=== PATIENT | female | born 1985 | race Caucasian/White ===

== ENCOUNTER 2016-05-09 07:09 | Inpatient (IN) | payer OTHER ==
[2016-05-09 08:03] LABS: HCT 38.9 % (37.0-47.0); HGB 13.3 g/dl (12.5-16.0); MCH 33.3 pg (25.0-31.0); MCHC 34.2 g/dL (32.0-36.0); MCV 97.3 fL (78.0-100.0); MPV 10.6 fL (6.0-9.5); RDW 12.4 % (11.5-14.0); WBC 8.7 K/uL (4.0-10.5)
[2016-05-10 03:26] LABS: BILIRUBIN NEGATIVE (NEGATIVE); BLOOD 2+ Ery/uL (NEGATIVE); CLARITY CLEAR (CLEAR); COLOR YELLOW (YELLOW); GLUCOSE (U) NORMAL (NORMAL); KETONE (U) 3+ (LARGE) mg/dL (NEGATIVE); LEUKOCYTES NEGATIVE Leu/uL (NEGATIVE); NITRITE NEGATIVE (NEGATIVE); PROTEIN 1+ mg/dL (NEGATIVE); SPECIFIC GRAVITY 1.025 (1.001-1.030)
[2016-05-10 16:34] LABS: HCT 36.7 % (37.0-47.0); HGB 12.8 g/dl (12.5-16.0); MCH 34.2 pg (25.0-31.0); MCHC 34.9 g/dL (32.0-36.0); MCV 98.1 fL (78.0-100.0); MPV 10.3 fL (6.0-9.5); RBC 3.74 M/uL (4.20-5.40); RDW 12.7 % (11.5-14.0)
== END 2016-05-11 20:45 | disposition home or self-care (01) | DRG 766 ==
LOC: FOB 07:09
PROVIDERS: ADMIT Obstetrics & Gynecology
PROC: 0U7C7ZZ Dilation of Cervix, Via Natural or Artificial Opening (ICD-10-PCS; 2016-05-09)
PROC: 4A1HX4Z Monitoring of Products of Conception, Cardiac Electrical Activity, External Approach (ICD-10-PCS; 2016-05-09)
PROC: 10907ZC Drainage of Amniotic Fluid, Therapeutic from Products of Conception, Via Natural or Artificial Opening (ICD-10-PCS; 2016-05-09)
PROC: 10D00Z1 Extraction of Products of Conception, Low, Open Approach (ICD-10-PCS; principal; 2016-05-10 01:00)
PROC: 3E0234Z Introduction of Serum, Toxoid and Vaccine into Muscle, Percutaneous Approach (ICD-10-PCS; 2016-05-11)
DX: O34.211 Maternal care for low transverse scar from previous cesarean delivery (principal); O36.0930 Maternal care for other rhesus isoimmunization, third trimester, not applicable or unspecified; Z3A.41 41 weeks gestation of pregnancy; Z37.0 Single live birth; O62.0 Primary inadequate contractions; Z3A.40 40 weeks gestation of pregnancy; J45.909 Unspecified asthma, uncomplicated; O43.193 Other malformation of placenta, third trimester; O43.123 Velamentous insertion of umbilical cord, third trimester
CPT/HCPCS: 36415; 81003; 85461; 86850; 86900; 86901; 88307; J0456; J0690; J1885; J2274; J2405; J2790; J3010